=== PATIENT | male | born 1970 | race African-American/Black ===

== ENCOUNTER 2019-02-10 09:44 | Emergency (ER) | payer OTHER ==
[~2019-02-10] VITALS: Ht 175.3 cm; Wt 91.0 kg
[2019-02-10] MEDS ORDERED: SODIUM CHLORIDE 0.9% 1,000 ML IV ONE (10:15)
[2019-02-10] MEDS ORDERED: ONDANSETRON HCL 4MG/2ML INJ IV STA (10:15)
[2019-02-10] MEDS ORDERED: MORPHINE SULFATE 4 MG/ML CPJ (NOT FOR IM USE) IV STA (10:15)
[2019-02-10 10:36] LABS: EOSINOPHILS % 0.4 % (0.0-5.0); HEMATOCRIT. 44.7 % (42.0-52.0); HEMOGLOBIN. 15.7 g/dL (14.0-18.0); LYMPHOCYTES % 22.5 % (20.0-50.0); MEAN CORPUSCULAR HEMOGLOBIN 32.2 pg (28.0-32.0); MEAN CORPUSCULAR VOLUME 91.8 fL (80.0-94.0); MEAN PLATELET VOLUME 7.3 fl (7.4-10.4); MONOCYTES % 10.1 % (2.0-8.0); PLATELET 307 x1000/uL (130-400); RED BLOOD CELL COUNT 4.87 mill/uL (4.7-6.1); RED CELL DISTRIBUTION WIDTH 13.8 % (11.6-14.6)
[2019-02-10 10:41] LABS: INR 1.1
[2019-02-10 10:42] LABS: CHLORIDE 101 mEq/L (98-107)
[2019-02-10] MEDS ORDERED: POTASSIUM CHLORIDE 20MEQ TABLET SR PO ONE (11:00)
[2019-02-10 11:40] VITALS: BP 138/86
== END 2019-02-10 11:51 | disposition home or self-care (01) ==
LOC: ER 09:44
DX: R10.11 Right upper quadrant pain (principal)
CPT/HCPCS: 36415; 74176; 80053; 83690; 85025; 85610; 96361; 96374; 96375; 99284; J2270; J2405; J7030

== ENCOUNTER 2019-06-24 18:25 | Emergency (ER) | payer OTHER ==
[~2019-06-24] VITALS: Ht 170.2 cm; Wt 73.9 kg
[2019-06-24 18:43] VITALS: BP 144/100
== END 2019-06-25 04:19 | disposition left against medical advice (07) ==
LOC: ER 18:25
DX: Z53.21 Procedure and treatment not carried out due to patient leaving prior to being seen by health care provider (principal)

== ENCOUNTER 2023-01-15 18:26 | Emergency (ER) | payer MEDICAID, OTHER ==
[~2023-01-15] VITALS: Ht 177.8 cm; Wt 90.0 kg
[2023-01-15 18:31] VITALS: BP 162/101; RESP 20; TEMP 98.4; O2SAT 100
[2023-01-15 18:44] VITALS: PULSE 85
[2023-01-15] MEDS ORDERED: LIDOCAINE HCL/PF 1% 10 MG/ML 5ML VIAL INFIL ONE (22:45)
[2023-01-15] MEDS ORDERED: BACITRACIN ZINC OINT UDPKT TOP ONE (22:45)
[2023-01-15] MEDS ORDERED: TETANUS, DIPHTHERIA, PERTUSSIS VAC/PF 0.5ML (>10YR OLD) IM ONE (22:45)
[2023-01-16] MEDS ORDERED: AMOX1TAB16 MT (00:12)
[2023-01-16] MEDS ORDERED: AMOXICILLIN/POTASSIUM CLAVULANATE 875/125MG TAB PO ONE (00:15)
[2023-01-18] MEDS ORDERED: AMOX1TAB16 MT (11:03)
== END 2023-01-16 00:35 | disposition home or self-care (01) ==
LOC: ER 18:26
DX: L03.011 Cellulitis of right finger (principal)
CPT/HCPCS: 73130; 90715; 10060; 90471; 99283; J3490; Z7610 ×5

== ENCOUNTER 2024-04-10 19:57 | Emergency (ER) | payer MEDICAID ==
[~2024-04-10] VITALS: Ht 177.8 cm; Wt 91.0 kg
[~2024-04-10 19:57] MED LIST: AMOX1TAB16 MT
[2024-04-10 20:29] VITALS: O2SAT 100
[2024-04-10] MEDS: DIPHENHYDRAMINE 50MG/ML VIAL IV NR (23:45)
[2024-04-10] MEDS: DEXAMETHASONE 10 MG/ML VIAL IV NR (23:45)
[2024-04-11] MEDS: DEXAMETHASONE 10 MG/ML VIAL IV ONE (00:27)
[2024-04-11] MEDS: DIPHENHYDRAMINE 50MG/ML VIAL IV ONE (00:27)
[2024-04-11 00:30] VITALS: BP 133/68; PULSE 71; TEMP 36.39180; O2SAT 100
[2024-04-11] MEDS: TRANEXAMIC ACID 1,000MG/10ML IV ONE (00:32)
[2024-04-11 00:59] VITALS: RESP 16
== END 2024-04-11 01:06 | disposition home or self-care (01) ==
LOC: ER 19:57
DX: T78.3XXA Angioneurotic edema, initial encounter (principal); I10 Essential (primary) hypertension; X58.XXXA Exposure to other specified factors, initial encounter
CPT/HCPCS: 99284; 96374; 96375; J1100; J1200; Z7610